=== PATIENT | male | born 1970 | race American Indian/Alaskan Native ===

== ENCOUNTER 2018-08-10 20:45 | Emergency (ER) | payer OTHER ==
[2018-08-10 21:15] VITALS: BP 132/90
--- NOTE | 2018-08-10 21:56 | Emergency Department Report ---
- General Chief complaint: Allergic Reaction Stated complaint: LEFT EYE,ARM PAIN Time Seen by Provider: 08/10/18 21:52 Source: patient Mode of arrival: Ambulatory Limitations: No Limitations - History of Present Illness Initial comments: 8-year-old [place] male comes in reports a yellow jacket stung him his left eye and left arm. Patient put the left eye was done yesterday and left arm stung today. Patient reports he took Benadryl. Patient denies any shortness of breathing and no chest pain or difficulty swallowing. MD complaint: insect bite/sting (yellowjacket) -: days(s) (1) Severity: mild Severity scale (0 -10): 5 Quality: burning, other (itching) Consistency: intermittent Associated symptoms: denies other symptoms Treatments Prior to Arrival: Benadryl - Related Data Home Medications Medication Instructions Recorded Confirmed Last Taken Ibuprofen [Motrin 600 MG tab] 600 mg PO Q4-6H PRN 02/27/16 02/27/16 02/20/16 glipiZIDE [glipiZIDE XL] 2.5 mg PO BID 02/27/16 02/27/16 02/27/16 Allergies Allergy/AdvReac Type Severity Reaction Status Date / Time No Known Allergies Allergy Verified 02/27/16 20:39 Abscess Boil HPI - HPI Chief Complaint: Allergic Reaction Stated Complaint: LEFT EYE,ARM PAIN Time Seen by Provider: 08/10/18 21:52 Home Medications: Home Medications Medication Instructions Recorded Confirmed Last Taken Ibuprofen [Motrin 600 MG tab] 600 mg PO Q4-6H PRN 02/27/16 02/27/16 02/20/16 glipiZIDE [glipiZIDE XL] 2.5 mg PO BID 02/27/16 02/27/16 02/27/16 Allergies/Adverse Reactions: Allergies Allergy/AdvReac Type Severity Reaction Status Date / Time No Known Allergies Allergy Verified 02/27/16 20:39 ED Review of Systems ROS: Stated complaint: LEFT EYE,ARM PAIN Other details as noted in HPI Comment: All other systems reviewed and negative ED Past Medical Hx - Past Medical History Hx Diabetes: Yes Hx Asthma: Yes Additional medical history: sleep apnea, c-pap - Surgical History Additional Surgical History: knee. 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 deviated septum repair - Social History Smoking Status: Never Smoker Substance Use Type: Alcohol - Medications Home Medications: Home Medications Medication Instructions Recorded Confirmed Last Taken Type Ibuprofen [Motrin 600 MG tab] 600 mg PO Q4-6H PRN 02/27/16 02/27/16 02/20/16 History glipiZIDE [glipiZIDE XL] 2.5 mg PO BID 02/27/16 02/27/16 02/27/16 History ED Physical Exam - General Limitations: No Limitations General appearance: alert, in no apparent distress - Head Head exam: Present: atraumatic, normocephalic - Eye Eye exam: Present: PERRL, EOMI, other (mild swelling of the left upper lid and cheek on the left side.) - ENT ENT exam: Present: mucous membranes moist - Respiratory Respiratory exam: Present: normal lung sounds bilaterally. Absent: respiratory distress - Cardiovascular Cardiovascular Exam: Present: regular rate, normal rhythm. Absent: systolic murmur, diastolic murmur, rubs, gallop - Expanded Upper Extremity Exam Left Upper Arm exam: Present: normal inspection. Absent: tenderness, swelling, erythema Elbow exam: Present: normal inspection, full ROM. Absent: tenderness Forearm Wrist exam: Present: full ROM, swelling (mild), erythema. Absent: tenderness, abrasion, laceration, ecchymosis Hand Wrist exam: Present: normal inspection, full ROM Vascular: Present: vascular compromise - Neurological Exam Neurological exam: Present: alert, oriented X3 - Psychiatric Psychiatric exam: Present: normal affect, normal mood - Expanded Skin Exam Expanded Type of lesion: Present: bite/sting (left upper eyelid near eyebrow and left cheek, ) Distribution of rash: LUE (forearm left) ED Course Vital Signs 08/10/18 21:08 Temperature 99.2 F Pulse Rate 108 H Respiratory 16 Rate Blood Pressure 132/90 O2 Sat by Pulse 98 Oximetry ED Medical Decision Making - Medical Decision Making Patient has been evaluated by this provider fast track. Patient can take ibuprofen or Tylenol for the burning, [id number] hydrocortisone to the localized irritation Follow-up which her primary care provider if symptoms persist or gets worse Critical care attestation.: If time is entered above; I have spent that time in minutes in the direct care of this critically ill patient, excluding procedure time. ED Disposition Clinical Impression: Yellow jacket sting Qualifiers: Encounter type: initial encounter Injury intent: accidental or unintentional Qualified Code(s): T63.461A - Toxic effect of venom of wasps, accidental ( unintentional), initial encounter Disposition: DC-01 TO HOME OR SELFCARE Is pt being admited?: No Does the pt Need Aspirin: No Condition: Stable Instructions: Insect Bite or Sting (ED) Additional Instructions: Please take ibuprofen or Tylenol for the burning, [id number] hydrocortisone to the localized irritation Follow-up which her primary care provider if symptoms persist or gets worse Referrals: Your, Provider [Other] - 3-5 Days Forms: Work/School Release Form(ED)
== END 2018-08-10 22:05 | disposition home or self-care (01) ==
LOC: ED 20:45
DX: H57.12 Ocular pain, left eye (principal); M79.602 Pain in left arm; T63.461A Toxic effect of venom of wasps, accidental (unintentional), initial encounter; E11.69 Type 2 diabetes mellitus with other specified complication; Y92.89 Other specified places as the place of occurrence of the external cause
CPT/HCPCS: 99282

== ENCOUNTER 2019-03-25 09:00 | Outpatient (CLI) | payer OTHER ==
--- NOTE | 2019-03-25 09:58 | XRay Report ---
ROUTINE CHEST, TWO VIEWS: HISTORY: Anxiety, depression, diabetes, sleep apnea, disability exam. The trachea, heart, mediastinal contour, lung thornton and bony thorax are unremarkable. IMPRESSION: Unremarkable chest x-ray.
== END 2019-03-25 09:01 | disposition home or self-care (01) ==
LOC: PF 09:00
PROVIDERS: ATTEND Internal Medicine
DX: Z02.71 Encounter for disability determination (principal); E11.9 Type 2 diabetes mellitus without complications; G47.33 Obstructive sleep apnea (adult) (pediatric); J45.909 Unspecified asthma, uncomplicated
CPT/HCPCS: 71046; 94010; 94729

== ENCOUNTER 2020-11-30 10:31 | Outpatient (CLI) | payer OTHER ==
--- NOTE | 2020-11-30 12:19 | XRay Report ---
LUMBOSACRAL SPINE 5 VIEWS INDICATION: LOW BACK PAIN. COMPARISON: None. IMPRESSION: Normal alignment. Minimal degenerative endplate changes and disc space narrowing are no mary at L3-4, L4-5 and L5-S1. Minimal diffuse facet arthropathy is identified. The oblique images demo nstrate adequate patency of the neural foramen bilaterally. There are mild symmetric degenerative chepe nges in the SI joints. No acute osseous or soft tissue abnormality. BILATERAL KNEES STANDING, AP VIEW INDICATION: Pain in unspecified knee. COMPARISON: None. IMPRESSION: Standing AP views of both knees demonstrates no osseous abnormality or bone lesion. No s ignificant valgus or varus deformity is suspected. Mild medial compartment joint space narrowing and marginal spurring are noted in the right knee. The left knee joint is unremarkable. Signer Name: Jun Eubanks Jr, MD Signed: 11/30/2020 12:15 PM Workstation Name: [id number]
== END 2020-11-30 10:32 | disposition home or self-care (01) ==
LOC: XRAY 10:31
PROVIDERS: ATTEND Orthopaedic Surgery
DX: M48.061 Spinal stenosis, lumbar region without neurogenic claudication (principal); M47.816 Spondylosis without myelopathy or radiculopathy, lumbar region; M17.11 Unilateral primary osteoarthritis, right knee; M47.898 Other spondylosis, sacral and sacrococcygeal region; M76.9 Unspecified enthesopathy, lower limb, excluding foot
CPT/HCPCS: 72110; 73565

== ENCOUNTER 2021-02-05 13:55 | Emergency (ER) | payer OTHER ==
--- NOTE | 2021-02-05 14:19 | Emergency Department Report ---
ED Lower Extremity HPI - General Chief Complaint: Extremity Injury, Lower Stated Complaint: L ANKLE PAIN Time Seen by Provider: 02/05/21 14:14 Source: patient Mode of arrival: Ambulatory Limitations: No Limitations - History of Present Illness MD Complaint: ankle injury -: Sudden, days(s) (4) Injury: Ankle: Left Type of Injury: inversion Place: home Severity: mild, moderate Worsens With: weight bearing, movement, palpation Context: walking (Stepped off a step losing his balance and inversion injury) Associated Symptoms: snap/pop sensation, swelling, able to partially bear weight - Related Data Home Medications Medication Instructions Recorded Confirmed Last Taken Ibuprofen [Motrin 600 MG tab] 600 mg PO Q4-6H PRN 02/27/16 02/27/16 02/20/16 glipiZIDE [glipiZIDE XL] 2.5 mg PO BID 02/27/16 02/27/16 02/27/16 Previous Rx's Medication Instructions Recorded Last Taken Type Clindamycin [Clindamycin CAP] 150 mg PO Q8HR #30 capsule 04/18/20 Unknown Rx Diclofenac Sodium 75 mg PO BID #14 tablet. 02/05/21 Unknown Rx Allergies Allergy/AdvReac Type Severity Reaction Status Date / Time No Known Allergies Allergy Verified 02/27/16 20:39 ED Review of Systems ROS: Stated complaint: L ANKLE PAIN Other details as noted in HPI Comment: All other systems reviewed and negative ED Past Medical Hx - Past Medical History Previous Medical History?: Yes Hx Diabetes: Yes Hx Asthma: Yes Additional medical history: sleep apnea, c-pap - Surgical History Past Surgical History?: Yes Additional Surgical History: knee. 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 deviated septum repair - Social History Smoking Status: Never Smoker Substance Use Type: Alcohol, Prescribed - Medications Home Medications: Home Medications Medication Instructions Recorded Confirmed Last Taken Type Ibuprofen [Motrin 600 MG tab] 600 mg PO Q4-6H PRN 02/27/16 02/27/16 02/20/16 History glipiZIDE [glipiZIDE XL] 2.5 mg PO BID 02/27/16 02/27/16 02/27/16 History Clindamycin [Clindamycin CAP] 150 mg PO Q8HR #30 capsule 04/18/20 Unknown Rx Diclofenac Sodium 75 mg PO BID #14 tablet. 02/05/21 Unknown Rx ED Physical Exam - General Limitations: No Limitations General appearance: alert, in no apparent distress - Head Head exam: Present: atraumatic, normocephalic - Eye Eye exam: Present: normal appearance, PERRL, EOMI Pupils: Present: normal accommodation - ENT ENT exam: Present: normal exam, normal orophraynx, mucous membranes moist, TM's normal bilaterally - Neck Neck exam: Present: normal inspection, full ROM - Respiratory Respiratory exam: Present: normal lung sounds bilaterally. Absent: respiratory distress, wheezes, rales, chest wall tenderness, accessory muscle use - Cardiovascular Cardiovascular Exam: Present: normal rhythm, tachycardia. Absent: systolic murmur, diastolic murmur, rubs, gallop - GI/Abdominal GI/Abdominal exam: Present: soft, normal bowel sounds - Rectal Rectal exam: Present: deferred - Extremities Exam Extremities exam: Present: normal inspection, tenderness (Pulses 2+ capillary refills are brisk.), joint swelling (To the lateral malleoli region with palpation. Full range of motion drawer test is negative.) - Expanded Lower Extremity Exam Left Upper Leg exam: Present: normal inspection Knee exam: Present: normal inspection Ankle exam: Present: tenderness, swelling. Absent: laceration, ecchymosis, dislocation Foot/Toe exam: Present: normal inspection Neuro vascular tendon exam: Present: no vascular compromise 1 - Tenderness to this region with palpation. No edema no ecchymosis noted. No broken skin. No tenderness at the base of the fifth medical tarsal - Back Exam Back exam: Present: normal inspection - Neurological Exam Neurological exam: Present: alert, oriented X3 - Psychiatric Psychiatric exam: Present: normal affect, normal mood - Skin Skin exam: Present: warm, dry, intact, normal color. Absent: rash ED Course Vital Signs 02/05/21 02/05/21 14:08 14:55 Temperature 99.2 F 99.2 F Pulse Rate 124 H 116 H Respiratory 18 20 Rate Blood Pressure 139/95 Blood Pressure 133/100 [Left] O2 Sat by Pulse 96 99 Oximetry ED Lower Extremity MDM - Radiology Data Radiology results: report reviewed [facility] [address] [place] [address] XRay Report Signed Patient: JEVON MOHAN MR#: [id number] : 1970 Acct:[id number] Age/Sex: 50 / M ADM Date: 02/05/21 Loc: ED Attending Dr: Ordering Physician: MIGUEL ZUNIGA MD Date of Service: 02/05/21 Procedure(s): XR ankle 3+V LT Accession Number(s): [id number] cc: ED MD NADIA Fluoro Time In Minutes: LEFT ANKLE 3 VIEW(S) INDICATION / CLINICAL INFORMATION: left ankle injury COMPARISON: None available. FINDINGS: BONES / JOINT(S): Minimally displaced avulsion fracture of the tip of the lateral malleolus. No other fracture. No significant arthritis. SOFT TISSUES: Moderate lateral soft tissue swelling. ADDITIONAL FINDINGS: None. Signer Name: Naseem Chau MD Signed: 02/05/2021 2:41 PM Workstation Name: [id number] Transcribed By: DT Dictated By: Fadi Chau MD Electronically Authenticated By: Fadi Chau MD Signed Date/Time: 02/05/21 144 DD/ 1440 TD/TT: - Medical Decision Making 50-year-old obese male status post trip and inversion injury to the left ankle resulting in pain and swelling tenderness found to have a very faint avulsion fracture to the lateral malleoli region not resulting in any deformities. Reports no fever, chills, sweats no chest pain palpitation no nausea no vomiting The patient does have tachycardia on examination but asymptomatic is obese and deconditioned and and has some no headache, no dizziness. Critical care attestation.: If time is entered above; I have spent that time in minutes in the direct care of this critically ill patient, excluding procedure time. ED Disposition Clinical Impression: Ankle sprain, Avulsion fracture of ankle Disposition: - TO HOME OR SELFCARE Is pt being admited?: No Does the pt Need Aspirin: No Condition: Stable Instructions: How to Use a Stirrup Ankle Brace, [id number], Nondisplaced Fibu lar Ankle Fracture Treated With Immobilization, Adult, Ankle Sprain, Elastic Bandage and RICE Therapy, How to Use Cold Therapy, How to Use a Stirrup Ankle Brace Additional Instructions: You have a small avulsion fracture involving the tip of the fibula Prescriptions: Diclofenac Sodium 75 mg PO BID #14 tablet.dr Referrals: KYLE DOBSON MD [Staff Physician] - 3-5 Days
--- NOTE | 2021-02-05 14:45 | XRay Report ---
LEFT ANKLE 3 VIEW(S) INDICATION / CLINICAL INFORMATION: left ankle injury COMPARISON: None available. FINDINGS: BONES / JOINT(S): Minimally displaced avulsion fracture of the tip of the lateral malleolus. No other fracture. No significant arthritis. SOFT TISSUES: Moderate lateral soft tissue swelling. ADDITIONAL FINDINGS: None. Signer Name: Naseem Chau MD Signed: 02/05/2021 2:41 PM Workstation Name: [id number]
[2021-02-05 14:57] VITALS: BP 133/100
== END 2021-02-05 15:45 | disposition home or self-care (01) ==
LOC: ED 13:55
DX: S93.402A Sprain of unspecified ligament of left ankle, initial encounter (principal); S82.892A Other fracture of left lower leg, initial encounter for closed fracture; E11.9 Type 2 diabetes mellitus without complications; J45.909 Unspecified asthma, uncomplicated; Z79.899 Other long term (current) drug therapy; W10.9XXA Fall (on) (from) unspecified stairs and steps, initial encounter; Y93.89 Activity, other specified; Y92.89 Other specified places as the place of occurrence of the external cause; Y99.8 Other external cause status
CPT/HCPCS: 99283

== ENCOUNTER 2021-11-01 06:08 | Day surgery (SDC) | payer OTHER ==
[~2021-11-01 06:08] MED LIST: BUPIVACAINE/PF (0.5%) 5 MG/1 ML 30 ML VIAL INFILTRATI ONE; SODIUM CHLORIDE 0.9% IRR 1,500 ML BOTTLE IR ONE; ceFAZolin/Water 2 GM/20 ML 2 GM/20 ML SYRINGE IV NR
[2021-11-01] MEDS ORDERED: BACTERIOSTATIC SODIUM CHLORIDE 0.9% 30 ML VIAL INFILTRATI ONE (06:28)
[2021-11-01] MEDS ORDERED: LACTATED RINGERS 1,000 ML IV SCH (07:00)
[2021-11-01] MEDS ORDERED: BUPIVACAINE/PF (0.5%) 5 MG/1 ML 30 ML VIAL INFILTRATI ONE ×3 (07:05→08:57)
[2021-11-01 07:11] LABS: BUN/Creatinine Ratio 19; Blood Urea Nitrogen 17 mg/dL (9-20); Calcium 9.8 mg/dL (8.4-10.2); Hemolysis Index 5
[2021-11-01] MEDS ORDERED: ePHEDrine SULFATE 50 MG/1 ML INJ ONE (07:30)
--- NOTE | 2021-11-01 07:31 | Anesthesia Day of Surgery ---
Anesthesia Day of Surgery - Day of Surgery Patient Examined: Yes Patient H&P Reviewed: Yes Patient is NPO: Yes
[2021-11-01] MEDS ORDERED: fentaNYL 100 MCG/2 ML INJ ONE (07:32)
[2021-11-01] MEDS ORDERED: PHENYLEPHRINE/NS 1,000 MCG/10 ML SYRINGE (OR USE) IV ONE (07:32)
[2021-11-01] MEDS ORDERED: LIDOCAINE MPF (2%) 20 MG/1 ML VIAL 5 ML ONE (07:32)
[2021-11-01] MEDS ORDERED: propofoL 200 MG/20 ML VIAL IV ONE (07:32)
[2021-11-01] MEDS ORDERED: dexAMETHasone 20 MG/5 ML VIAL ONE (07:32)
[2021-11-01] MEDS ORDERED: SUCCINYLCHOLINE CHLORIDE 200 MG/10 ML INJ MDV ONE (07:32)
[2021-11-01] MEDS ORDERED: GLYCOPYRROLATE 0.4 MG/2 ML INJ ONE (07:32)
--- NOTE | 2021-11-01 07:33 | Anesthesia Consultation ---
Anesthesia Consult and Med Hx Date of service: 11/01/21 - Airway Anesthetic Teeth Evaluation: Good (Some missing) ROM Head & Neck: Adequate Mental/Hyoid Distance: Adequate Mallampati Class: Class IV Intubation Access Assessment: Possibly Difficult - Pre-Operative Health Status ASA Pre-Surgery Classification: ASA3 Proposed Anesthetic Plan: General - Pre-Anesthesia Comment Pre-Anesthesia Comments: PONV - Pulmonary Hx Smoking: No Hx Asthma: Yes (INHALER PRN) Hx Sleep Apnea: Yes (DX SLEEP APNEA WITH CPAP USE.) - Cardiovascular System Hx Hypertension: Yes - Central Nervous System Hx Back Pain: Yes (NECK PAIN) - Gastrointestinal Hx Gastroesophageal Reflux Disease: Yes - Endocrine Hx Non-Insulin Dependent Diabetes: Yes - Hematic Hx Anemia: No - Other Systems Hx Cancer: No
[2021-11-01] MEDS ORDERED: ONDANSETRON 4 MG/2 ML INJ IV PRN (08:00)
[2021-11-01] MEDS ORDERED: HYDROmorphone 1 MG/1 ML INJ IV PRN ×2 (08:30)
[2021-11-01] MEDS ORDERED: SODIUM CHLORIDE 0.9% IRR 1,500 ML BOTTLE IR ONE (08:57)
--- NOTE | 2021-11-01 09:40 | Procedure Note ---
Date of procedure: 11/01/21 Pre-op diagnosis: Right carpal tunnel syndrome Post-op diagnosis: same Procedure: Right endoscopic carpal tunnel release Procedure The patient was brought to the OR placed in the OR table in supine position following induction and intubation anesthesia the patient's right upper extremity was prepped and draped in the usual sterile manner a timeout procedure was done to identify the patient and the correct operative site next the arm was exsanguinated followed by inflation of the pneumatic tourniquet to 250 mmHg a volar incision was made at the distal wrist crease this is taken down through skin and subcutaneous using loupe magnification the superficial flexor sheath was identified next the carpal canal was entered using dilators andthe arthroscope was inserted the patient was noted to have some tightness at the carpal canal and the transverse carpal transverse carpal ligament was identified with the arthroscope in line with the fourth metacarpal the knife blade assembly was elevated the ligament was released from distal to proximal care was taken to release the ligament as completely as possible a second look was done and it appeared that the ligament was completely released at this point The wound was irrigated and was closed in a standard routine fashion. Dressings were applied the patient tolerated the procedure there were no complications she was sent to postanesthesia recovery in stable condition Anesthesia: RIO Surgeon: KYLE DOBSON Estimated blood loss: minimal Pathology: none Condition: stable Disposition: PACU
[2021-11-01] MEDS ORDERED: HYDROcodone/ACETAMINOPHEN 5-325 MG TAB PO PRN (10:30)
[2021-11-01 10:33] VITALS: BP 118/62
--- NOTE | 2021-11-01 11:21 | Post Anesthesia Evaluation ---
- Post Anesthesia Evaluation Patient Participated: Yes Airway Patent: Yes Stable Respiratory Function: Yes Nausea/Vomiting: No Temp > 96.8F: Yes Pain Manageable: Yes Adequeate Hydration: Yes Anesthesia Complications: No Block Receding Appropriately: Not Applicable Patient on Ventilator: No
== END 2021-11-01 11:00 | disposition home or self-care (01) ==
LOC: OR 06:08
PROVIDERS: ATTEND Orthopaedic Surgery
DX: G56.01 Carpal tunnel syndrome, right upper limb (principal); Z20.822 Contact with and (suspected) exposure to COVID-19; I10 Essential (primary) hypertension; E11.9 Type 2 diabetes mellitus without complications; K21.9 Gastro-esophageal reflux disease without esophagitis; J45.909 Unspecified asthma, uncomplicated; G47.33 Obstructive sleep apnea (adult) (pediatric); Z79.899 Other long term (current) drug therapy; Z98.890 Other specified postprocedural states
CPT/HCPCS: 29848; 36415; 80048; 82962; J0330; J0690; J1100; J1170; J1815; J2370; J2405; J2704; J3010; J3490; J7120; U0003